=== PATIENT | female | born 1955 | race African-American/Black ===

== ENCOUNTER 2025-06-28 11:26 | Emergency (ER) | payer BC ==
[~2025-06-28] VITALS: Ht 167.6 cm; Wt 93.0 kg
[2025-06-28 11:39] VITALS: O2SAT 99
[2025-06-28 14:08] VITALS: BP 143/81; PULSE 62; RESP 16; TEMP 36.7; O2SAT 99
== END 2025-06-28 14:09 | disposition home or self-care (01) ==
LOC: ER 11:26
DX: Z00.8 Encounter for other general examination (principal); J45.909 Unspecified asthma, uncomplicated; I10 Essential (primary) hypertension; E11.9 Type 2 diabetes mellitus without complications; Z88.0 Allergy status to penicillin; Z88.5 Allergy status to narcotic agent; Z91.040 Latex allergy status
CPT/HCPCS: 99282